=== PATIENT | male | born 1930 | race Caucasian/White ===

== ENCOUNTER 2016-07-22 10:38 | Inpatient (IN) | payer MEDICARE ==
--- NOTE | 2016-07-22 11:01 | ED PDOC ---
HPI: General Adult Time Seen by Provider: 07/22/16 10:56 Chief Complaint (Provider): vomit History Per: Patient History/Exam Limitations: no limitations Additional Complaint(s): 86yo male comes to the ED complaining of dizziness, since yesterday. Worse when turning his head side to side and vomit. States he vomited 15x yesterday and 2x today. No chest pain. Past Medical History Reviewed: Historical Data, Nursing Documentation, Vital Signs Vital Signs: Last Vital Signs Temp 97.0 F L 07/22/16 11:14 Pulse 57 L 07/22/16 11:14 Resp 20 07/22/16 11:14 BP 162/79 H 07/22/16 11:14 Pulse Ox 99 07/22/16 11:14 - Medical History PMH: HTN Denies: Diabetes - Surgical History Surgical History: Back Surgery, CABG, Cholecystectomy - Family History Family History: States: Unknown Family Hx - Immunization History Hx Tetanus Toxoid Vaccination: No - Home Medications Home Medications: Ambulatory Orders Medication Instructions Recorded Avodart 0.5 mg PO DAILY 12/16/14 Coreg 6.25 mg PO DAILY 12/16/14 Flomax 0.4 mg PO DAILY 12/16/14 Gabapentin 300 mg PO DAILY 12/16/14 Lipitor 20 mg PO DAILY 12/16/14 Lisinopril 20 - 125 mg PO DAILY 12/16/14 Phenazopyridine Hydrochlorid2 1 tab PO TID #20 tab 12/16/14 [Pyridium] Plavix 75 mg PO DAILY 12/16/14 traMADol 50 mg PO BID 12/16/14 - Allergies Allergies/Adverse Reactions: Allergies Allergy/AdvReac Type Severity Reaction Status Date / Time No Known Allergies Allergy Unverified 12/16/14 09:49 Review of Systems ROS Statement: Except As Marked, All Systems Reviewed And Found Negative Cardiovascular: Negative for: Chest Pain Gastrointestinal: Positive for: Vomiting Neurological: Positive for: Dizziness Physical Exam - Reviewed Nursing Documentation Reviewed: Yes Vital Signs Reviewed: Yes - Physical Exam Appears: Positive for: Well, Non-toxic, No Acute Distress Head Exam: Positive for: ATRAUMATIC, NORMAL INSPECTION, NORMOCEPHALIC Skin: Positive for: Warm, Dry Eye Exam: Positive for: EOMI, PERRL Cardiovascular/Chest: Positive for: Regular Rate, Rhythm Respiratory: Positive for: Normal Breath Sounds. Negative for: Rales, Rhonchi, Wheezing Extremity: Positive for: Normal ROM Neurologic/Psych: Positive for: Alert, Oriented (x3) - Laboratory Results Result Diagrams: 07/22/16 11:31 07/22/16 11:31 Disposition - Clinical Impression Clinical Impression: Chest pain, Vertigo - Patient ED Disposition Is Patient to be Admitted: Yes - Disposition Disposition Time: 12:33 Condition: FAIR - Pt Status Changed To: Hospital Disposition Of: Observation - POA Present On Arrival: None Additional Comments - Additional Comments Additional Comments: Documented by Hiram Marie acting as a scribe for Pilo Campo MD. All medical record entries made by the Scribe were at my direction and personally dictated by me. I have reviewed the chart and agree that the record accurately reflects my personal performance of the history, physical exam, medical decision making, and the department course for this patient. I have also personally directed, reviewed, and agree with the discharge instructions and disposition.
[2016-07-22] MEDS ORDERED: Sodium Chloride 0.9% 1,000 ML IV STA (11:04)
[2016-07-22 11:36] LABS: BASO % 0.2 % (0.0-2.0); EOS # 0.1 K/uL (0.0-0.7); EOS % 1.1 % (0.0-4.0); HEMATOCRIT 43.7 % (35.0-51.0); LYMPH # 0.8 K/uL (1.0-4.3); LYMPH % 9.4 % (20.0-40.0); MEAN CELL VOLUME 95.1 fl (80.0-94.0); MEAN CORPUSCULAR HEMOGLOBIN 32.1 pg (27.0-31.0); MEAN CORPUSCULAR HGB CONC 33.8 g/dL (33.0-37.0); MEAN PLATELET VOLUME 9.8 fl (7.2-11.7); MONO # 0.4 K/uL (0.0-0.8); MONO % 4.2 % (0.0-10.0); NEUT # 7.3 K/uL (1.8-7.0); NEUT % 85.1 % (50.0-75.0); NRBC % 0.1 % (0.0-0.0); PLATELET COUNT 133 K/uL (130-400); RED CELL DISTRIBUTION WIDTH 14.9 % (11.5-14.5); WHITE BLOOD COUNT 8.6 K/uL (4.8-10.8)
[2016-07-22 11:52] LABS: ALB/GLOB RATIO 1.3 (1.0-2.1); ALKALINE PHOSPHATASE 53 U/L (38-126); ALT/SGPT 30 U/L (21-72); AST/SGOT 28 U/L (17-59); BILIRUBIN,TOTAL 0.9 mg/dl (0.2-1.3); BLOOD UREA NITROGEN 21 mg/dl (9-20); CALCIUM 9.1 mg/dL (8.4-10.2); CARBON DIOXIDE 28 mmol/L (22-30); CHLORIDE 97 mmol/L (98-107); GFR AFRICAN-AMERICAN > 60; GLUCOSE,RANDOM 147 mg/dL (75-110); POTASSIUM 3.7 MMOL/L (3.6-5.0); SODIUM 142 mmol/l (132-148); TOTAL PROTEIN 7.3 G/DL (6.3-8.2)
[2016-07-22 12:37] LABS: NEUTROPHIL 83 % (42-75); REACTIVE LYMPHOCYTES 1 % (0-0); TOTAL CELLS COUNTED 100
[2016-07-22 12:38] LABS: LARGE PLATELETS PRESENT; PLATELET CLUMPS PRESENT
--- NOTE | 2016-07-22 13:32 | RAD ---
HISTORY: dizziness COMPARISON: No prior. TECHNIQUE: Chest PA and lateral FINDINGS: LUNGS: No active pulmonary disease. PLEURA: No significant pleural effusion identified. No pneumothorax apparent. CARDIOVASCULAR: Normal. OSSEOUS STRUCTURES: No significant abnormalities. VISUALIZED UPPER ABDOMEN: Normal. OTHER FINDINGS: None. IMPRESSION: No active disease.
[2016-07-22] MEDS ORDERED: Pantoprazole 40 mg EC Tab PO ONE (15:59)
[2016-07-22] MEDS ORDERED: Pantoprazole 40 mg EC Tab PO STA (16:07)
--- NOTE | 2016-07-23 07:06 | CP.PCM.HP ---
History of Present Illness - History of Present Illness History of Present Illness: pt presented to er for dizziness. was admitted for dizziness and abn ekg. pt was given meds for dizziness-meclizine and felt better. bw, ekg and imaging noted. cardio cleared pt for dc. pt ambulates w/ cane. no distress. Present on Admission - Present on Admission Any Indicators Present on Admission: No Review of Systems - Cardiovascular Cardiovascular: As Per HPI, Slow Heart Rate - Neurological Neurological: As Per HPI, Dizziness Past Patient History - Past Medical History & Family History Past Medical History?: Yes - Past Social History Smoking Status: Never Smoked - CARDIAC Hx Cardiac Disorders: Yes - PULMONARY Hx Respiratory Disorders: No - NEUROLOGICAL Hx Neurological Disorder: No - HEENT Hx HEENT Problems: No - RENAL Hx Chronic Kidney Disease: No - ENDOCRINE/METABOLIC Hx Endocrine Disorders: No - HEMATOLOGICAL/ONCOLOGICAL Hx Blood Disorders: No - INTEGUMENTARY Hx Dermatological Problems: No - MUSCULOSKELETAL/RHEUMATOLOGICAL Hx Musculoskeletal Disorders: Yes - GASTROINTESTINAL Hx Gastrointestinal Disorders: Yes Hx Bowel Surgery: No Hx Clostridium Difficile: No Hx Colitis: No Hx Colostomy: No Hx Constipation: No Hx Crohn's Disease: No Hx Diarrhea: No Hx Diverticulitis: No Hx Esophageal Varices: No Hx Fatty Liver Disease: No Hx Gall Bladder Disease: No Hx Gastritis: No Hx Gastroesophageal Reflux: No Hx Hemorrhoids: No Hx Ileostomy: No Hx Irritable Bowel: No Hx Liver Failure: No Hx Nausea: Yes Hx Pancreatitis: No HX Swallowing Problems: Yes Hx Ulcer: No Hx Vomiting: Yes - GENITOURINARY/GYNECOLOGICAL Hx Genitourinary Disorders: No - PSYCHIATRIC Hx Psychophysiologic Disorder: No - SURGICAL HISTORY Hx Surgeries: Yes Hx Abdominal Aortic Aneurysm Repair: No Hx Amputation: No Hx Angiogram: No Hx Angioplasty: No Hx Appendectomy: No Hx Arteriovenous Shunt: No Hx Arthroscopy: No Hx Bile Duct Stent: No Hx Breast Biopsy: No Hx Cataract Extraction: No Hx Cardiac Catheterization: No Hx Carotid Endarterectomy: No Hx Section: No Hx Cholecystectomy: Yes Hx Coronary Artery Bypass Graft: Yes Hx Coronary Stent: No Hx Dilation and Curettage: No Hx Eye Surgery: Yes Hx Femoral-Popliteal Bypass Graft: No Hx Gastric Bypass Surgery: No Hx Herniorrhaphy: No Hx Hysterectomy: No Hx Joint Replacement: No Hx Kidney Transplant: No Hx Liver Transplant: No Hx Mastectomy: No Hx Musculoskeletal Surgery: No Hx Open Heart Surgery: No Hx Open Reduction Internal Fixation: No Hx Orthopedic Surgery: No Hx Parathyroidectomy: No Hx Penile Implant: No Hx Pulmonary Surgery: No Hx Splenectomy: No Hx Thyroidectomy: No Hx Tonsillectomy: No Hx Tubal Ligation: No Hx Valve Replacement: No Hx Vascular Surgery: No Hx Vascular Access Device: No - ANESTHESIA Hx Anesthesia: Yes Hx Anesthesia Reactions: No Hx Malignant Hyperthermia: No Has any member of the family had a problem w/ anesthesia?: No Meds Home Medications: Home Medication List Medication Instructions Recorded Confirmed Type Meclizine [Antivert] 25 mg PO Q8 #30 tab 07/23/16 Rx Allergies/Adverse Reactions: Allergies Allergy/AdvReac Type Severity Reaction Status Date / Time No Known Allergies Allergy Unverified 12/16/14 09:49 Physical Exam - Constitutional Appears: Well, Non-toxic, No Acute Distress - Head Exam Head Exam: ATRAUMATIC, NORMAL INSPECTION, NORMOCEPHALIC - Eye Exam Eye Exam: EOMI, Normal appearance, PERRL Pupil Exam: NORMAL ACCOMODATION, PERRL - ENT Exam ENT Exam: Mucous Membranes Moist, Normal Exam - Neck Exam Neck exam: Positive for: Normal Inspection - Respiratory Exam Respiratory Exam: Clear to Auscultation Bilateral, NORMAL BREATHING PATTERN - Cardiovascular Exam Cardiovascular Exam: Bradycardia, REGULAR RHYTHM, RRR, +S1, +S2 - GI/Abdominal Exam GI & Abdominal Exam: Normal Bowel Sounds, Soft. absent: Tenderness - Extremities Exam Extremities exam: Positive for: full ROM, normal capillary refill, normal inspection, pedal pulses present - Back Exam Back exam: FULL ROM, NORMAL INSPECTION - Neurological Exam Neurological exam: Alert, CN II-XII Intact, Normal Gait, Oriented x3, Reflexes Normal - Psychiatric Exam Psychiatric exam: Normal Affect, Normal Mood - Skin Skin Exam: Dry, Intact, Normal Color, Warm Results - Vital Signs Recent Vital Signs: Last Vital Signs Temp 98.3 F 07/23/16 04:48 Pulse 63 07/23/16 04:48 Resp 18 07/23/16 04:48 BP 121/66 07/23/16 04:48 Pulse Ox 97 07/23/16 04:45 - Labs Result Diagrams: 07/23/16 05:50 07/23/16 05:50 Labs: Laboratory Results - last 24 hr 07/22/16 18:40 Troponin I < 0.0120 Assessment & Plan (1) Vertigo Assessment and Plan: meclizine w/ relief neuro cardio Status: Acute (2) Chest pain Assessment and Plan: r/o by cardio trops negative Status: Ruled-out (3) DVT prophylaxis Assessment and Plan: scd nad ae hose lovenox if admitted over 24h Status: Acute Decision To Admit - Pt Status Changed To: Hospital Disposition Of: Observation - . Bed Request Type: Telemetry Admitting Physician: Jun Hicks
[2016-07-23 07:52] LABS: BASO % 0.4 % (0.0-2.0); EOS # 0.3 K/uL (0.0-0.7); LYMPH # 1.4 K/uL (1.0-4.3); LYMPH % 17.4 % (20.0-40.0); MEAN CELL VOLUME 94.9 fl (80.0-94.0); MEAN CORPUSCULAR HEMOGLOBIN 32.4 pg (27.0-31.0); MEAN CORPUSCULAR HGB CONC 34.1 g/dL (33.0-37.0); MEAN PLATELET VOLUME 9.8 fl (7.2-11.7); MONO # 0.6 K/uL (0.0-0.8); MONO % 7.4 % (0.0-10.0); NEUT # 5.6 K/uL (1.8-7.0); NEUT % 70.8 % (50.0-75.0); NRBC % 0.1 % (0.0-0.0); RED CELL DISTRIBUTION WIDTH 14.9 % (11.5-14.5); WHITE BLOOD COUNT 7.9 K/uL (4.8-10.8)
[2016-07-23 08:03] LABS: ALB/GLOB RATIO 1.3 (1.0-2.1); ALKALINE PHOSPHATASE 48 U/L (38-126); ALT/SGPT 28 U/L (21-72); AST/SGOT 23 U/L (17-59); BILIRUBIN,TOTAL 0.8 mg/dl (0.2-1.3); BLOOD UREA NITROGEN 17 mg/dl (9-20); CALCIUM 8.8 mg/dL (8.4-10.2); CARBON DIOXIDE 29 mmol/L (22-30); CHLORIDE 101 mmol/L (98-107); GFR AFRICAN-AMERICAN > 60; GLUCOSE,RANDOM 90 mg/dL (75-110); SODIUM 143 mmol/l (132-148); TOTAL PROTEIN 6.6 G/DL (6.3-8.2)
--- NOTE | 2016-07-23 08:37 | CP.PCM.CON ---
History of Present Illness - History of Present Illness History of Present Illness: 86yo male comes to the ED complaining of dizziness, since yesterday. Worse when turning his head side to side and vomit. States he vomited 15x yesterday and 2x today. No chest pain. The patient emphatically denies having had any chest pain. Does not get chest pain when he exerts himself. The only problem he came in for was a nauseousness and vomiting. Troponin: neg x 3 EKG: normal Past Patient History - Past Medical History & Family History Past Medical History?: Yes - Past Social History Smoking Status: Never Smoked - CARDIAC Hx Cardiac Disorders: Yes - PULMONARY Hx Respiratory Disorders: No - NEUROLOGICAL Hx Neurological Disorder: No - HEENT Hx HEENT Problems: No - RENAL Hx Chronic Kidney Disease: No - ENDOCRINE/METABOLIC Hx Endocrine Disorders: No - HEMATOLOGICAL/ONCOLOGICAL Hx Blood Disorders: No - INTEGUMENTARY Hx Dermatological Problems: No - MUSCULOSKELETAL/RHEUMATOLOGICAL Hx Musculoskeletal Disorders: Yes - GASTROINTESTINAL Hx Gastrointestinal Disorders: Yes Hx Bowel Surgery: No Hx Clostridium Difficile: No Hx Colitis: No Hx Colostomy: No Hx Constipation: No Hx Crohn's Disease: No Hx Diarrhea: No Hx Diverticulitis: No Hx Esophageal Varices: No Hx Fatty Liver Disease: No Hx Gall Bladder Disease: No Hx Gastritis: No Hx Gastroesophageal Reflux: No Hx Hemorrhoids: No Hx Ileostomy: No Hx Irritable Bowel: No Hx Liver Failure: No Hx Nausea: Yes Hx Pancreatitis: No HX Swallowing Problems: Yes Hx Ulcer: No Hx Vomiting: Yes - GENITOURINARY/GYNECOLOGICAL Hx Genitourinary Disorders: No - PSYCHIATRIC Hx Psychophysiologic Disorder: No - SURGICAL HISTORY Hx Surgeries: Yes Hx Abdominal Aortic Aneurysm Repair: No Hx Amputation: No Hx Angiogram: No Hx Angioplasty: No Hx Appendectomy: No Hx Arteriovenous Shunt: No Hx Arthroscopy: No Hx Bile Duct Stent: No Hx Breast Biopsy: No Hx Cataract Extraction: No Hx Cardiac Catheterization: No Hx Carotid Endarterectomy: No Hx Section: No Hx Cholecystectomy: Yes Hx Coronary Artery Bypass Graft: Yes Hx Coronary Stent: No Hx Dilation and Curettage: No Hx Eye Surgery: Yes Hx Femoral-Popliteal Bypass Graft: No Hx Gastric Bypass Surgery: No Hx Herniorrhaphy: No Hx Hysterectomy: No Hx Joint Replacement: No Hx Kidney Transplant: No Hx Liver Transplant: No Hx Mastectomy: No Hx Musculoskeletal Surgery: No Hx Open Heart Surgery: No Hx Open Reduction Internal Fixation: No Hx Orthopedic Surgery: No Hx Parathyroidectomy: No Hx Penile Implant: No Hx Pulmonary Surgery: No Hx Splenectomy: No Hx Thyroidectomy: No Hx Tonsillectomy: No Hx Tubal Ligation: No Hx Valve Replacement: No Hx Vascular Surgery: No Hx Vascular Access Device: No - ANESTHESIA Hx Anesthesia: Yes Hx Anesthesia Reactions: No Hx Malignant Hyperthermia: No Has any member of the family had a problem w/ anesthesia?: No Meds Allergies/Adverse Reactions: Allergies Allergy/AdvReac Type Severity Reaction Status Date / Time No Known Allergies Allergy Unverified 12/16/14 09:49 - Medications Medications: Current Medications Aspirin (Aspirin Chewable) 81 mg PO DAILY [facility] Physical Exam - Respiratory Exam Respiratory Exam: NORMAL BREATHING PATTERN - Cardiovascular Exam Cardiovascular Exam: REGULAR RHYTHM Results - Vital Signs Recent Vital Signs: Last Vital Signs Temp 98.7 F 07/23/16 08:00 Pulse 62 07/23/16 08:00 Resp 18 07/23/16 08:00 BP 151/72 H 07/23/16 08:00 Pulse Ox 97 07/23/16 08:00 - Labs Result Diagrams: 07/23/16 05:50 07/23/16 05:50 Labs: Laboratory Results - last 24 hr 07/22/16 07/23/16 18:40 05:50 WBC 7.9 RBC 4.42 Hgb 14.3 Hct 42.0 MCV 94.9 H MCH 32.4 H MCHC 34.1 RDW 14.9 H Plt Count 130 MPV 9.8 Neut % (Auto) 70.8 Lymph % (Auto) 17.4 L [place] % (Auto) 7.4 Eos % (Auto) 4.0 Baso % (Auto) 0.4 Neut # 5.6 Lymph # 1.4 [place] # 0.6 Eos # 0.3 Baso # 0.0 Sodium 143 Potassium 4.0 Chloride 101 Carbon Dioxide 29 Anion Gap 18 BUN 17 Creatinine 0.9 Est GFR ( Amer) > 60 Est GFR (Non-Af Amer) > 60 Random Glucose 90 Calcium 8.8 Total Bilirubin 0.8 AST 23 ALT 28 Alkaline Phosphatase 48 Troponin I < 0.0120 0.0300 Total Protein 6.6 Albumin 3.8 Globulin 2.8 Albumin/Globulin Ratio 1.3 Assessment & Plan (1) Chest pain Assessment and Plan: As stated above the patient denies having had chest pain now or in the past He may be discharged at any time from a cardiac point of view Status: Ruled-out (2) Vertigo Status: Acute
--- NOTE | 2016-07-23 11:48 | CARD ---
APPROVED REPORT EKG Measurement Heart [id number] <Conclusion> Sinus bradycardia ST & T wave abnormality, consider anterior ischemia Abnormal ECG
--- NOTE | 2016-07-23 14:07 | CON ---
DATE: 07/23/2016 CHIEF COMPLAINT: Dizziness. HISTORY OF PRESENT ILLNESS: This is an 86-year-old man with history of hypertension, history of CABG , coronary artery disease, lumbar surgery, apparently was having dizziness in terms of spinning sensa tion of the room when he turns his head in a right to left direction or getting up suddenly from a si tting to a standing position, which is associated with nausea. Currently, he is doing much better to day. Denies any change in sense of vision, taste or smell. Denies any headaches or any focal weakne ss or paresthesias in the extremities. He was given meclizine which has made him feel better. His b lood pressure is much better controlled. Adan-Hallpike maneuver is negative at the bedside. PAST MEDICAL HISTORY: History of hypertension, lumbosacral surgery, coronary artery disease, coronar y artery bypass graft. REVIEW OF SYSTEMS: A 14-point review of systems is negative except for the HPI FAMILY HISTORY: Noncontributory. ALLERGIES: No known drug allergies. MEDICATIONS: Reviewed via nurse's reconciliation sheet. SOCIAL HISTORY: No illicit drug use, smoking, or ETOH abuse. PHYSICAL EXAMINATION: VITAL SIGNS: Temperature 98.8, pulse rate 60, blood pressure 120/65, respiratory rate of 18, oxygen 97% on room air. GENERAL: The patient is sitting up in bed in no acute distress. HEENT: Atraumatic, normocephalic. PERRLA. Extraocular muscles intact. NECK: Supple. No JVD. No adenopathy noted. LUNGS: Clear to auscultation. No adventitious sounds. HEART: S1, S2, normal rate and rhythm. No murmurs, rubs, or gallops. ABDOMEN: Soft, nontender, bowel sounds are present. EXTREMITIES: No clubbing, no cyanosis. Peripheral pulses 2+ felt bilaterally. NEUROLOGIC: The patient is alert, oriented to person, place, month and year. Speech is fluent, with out any errors. Cranial nerves II through XII are intact. MOTOR: Moves all extremities equally. Toes downgoing bilaterally. SENSORY: Light touch, pinprick, proprioception, vibration is intact. DTRs are 2+ throughout. COORDINATION: [id number] intact. GAIT: Deferred for now. LABORATORY DATA: Sodium is 143, potassium 4, chloride of 101, carbon dioxide 29, BUN of 17, creatini ne 0.9. Random glucose of 90. ASSESSMENT AND PLAN: This is an 86-year-old man with history of coronary artery disease, status post coronary artery bypass graft, history of chronic low back pain, history of lumbar surgery, history o f hypertension, who had dizziness in terms of spinning sensation of the room, especially when moving his head in right and left direction, associated with nausea and sudden movements. IMPRESSION: This is more of a paroxysmal positional vertigo. At this time, recommend: 1. Salt reduction in diet. 2. Meclizine 25 mg p.o. t.i.d. 3. Will need outpatient vestibular therapy. He is stable from my standpoint. Thank you for this consult. Peyman Aguilar MD cc: [phone] TT: 07/23/2016 14:06:51 Confirmation # [id number] Dictation # [id number] nitesh
--- NOTE | 2016-07-24 07:06 | CP.PCM.PN ---
Subjective - Date & Time of Evaluation Date of Evaluation: 07/24/16 Time of Evaluation: 07:05 - Subjective Subjective: doign well, no dizziness, unsteady gait despite cane. pending shane. no f/c, n/v/d. pending am labs. cleared by cardio/neuro for shane Objective - Vital Signs/Intake and Output Vital Signs (last 24 hours): Temp Pulse Resp BP Pulse Ox 97.6 F 59 L 18 136/78 97 07/23/16 22:37 07/23/16 22:37 07/23/16 22:37 07/23/16 22:37 07/23/16 22:37 - Medications Medications: Current Medications Aspirin (Aspirin Chewable) 81 mg PO DAILY [facility] Last Admin: 07/23/16 09:01 Dose: 81 mg Atorvastatin Calcium (Lipitor) 10 mg PO DAILY [facility] Carvedilol (Coreg) 6.25 mg PO DAILY [facility] Clopidogrel Bisulfate (Plavix) 75 mg PO DAILY [facility] Home Med (Dutasteride [Avodart]) 0.5 mg PO DAILY [facility] Home Med (Lisinopril/Hydrochlorothiazide [Lisinopril-Hctz 20-25 Mg Tab]) 1 tab PO DAILY [facility] Hydrochlorothiazide (Hydrodiuril) 25 mg PO DAILY [facility] Lisinopril (Zestril) 20 mg PO DAILY [facility] Meclizine HCl (Antivert) 25 mg PO BID [facility] Last Admin: 07/23/16 16:45 Dose: 25 mg Tamsulosin HCl (Flomax) 0.4 mg PO DAILY [facility] - Constitutional Appears: Well, Non-toxic, No Acute Distress - Head Exam Head Exam: ATRAUMATIC, NORMAL INSPECTION, NORMOCEPHALIC - Eye Exam Eye Exam: EOMI, Normal appearance, PERRL Pupil Exam: NORMAL ACCOMODATION, PERRL - ENT Exam ENT Exam: Mucous Membranes Moist, Normal Exam - Neck Exam Neck Exam: Full ROM, Normal Inspection. absent: Lymphadenopathy - Respiratory Exam Respiratory Exam: Clear to Ausculation Bilateral, NORMAL BREATHING PATTERN - Cardiovascular Exam Cardiovascular Exam: REGULAR RHYTHM, RRR, +S1, +S2. absent: Murmur - GI/Abdominal Exam GI & Abdominal Exam: Soft, Normal Bowel Sounds. absent: Tenderness - Extremities Exam Extremities Exam: Full ROM, Normal Capillary Refill, Normal Inspection. absent : Joint Swelling, Pedal Edema - Back Exam Back Exam: NORMAL INSPECTION - Neurological Exam Neurological Exam: Abnormal Gait, Alert, Awake, CN II-XII Intact, Oriented x3 - Psychiatric Exam Psychiatric exam: Normal Affect, Normal Mood - Skin Skin Exam: Dry, Intact, Normal Color, Warm Assessment and Plan (1) Vertigo Status: Acute (2) DVT prophylaxis Status: Acute - Assessment and Plan (Free Text) Assessment: (1) Vertigo Assessment and Plan: meclizine w/ relief neuro cardio Status: Acute (2) Chest pain Assessment and Plan: r/o by cardio trops negative Status: Ruled-out (3) DVT prophylaxis Assessment and Plan: scd nad ae hose lovenox if admitted over 24h Status: Acute for shane
[2016-07-24 07:58] LABS: BASO % 0.4 % (0.0-2.0); EOS # 0.4 K/uL (0.0-0.7); EOS % 6.3 % (0.0-4.0); HEMATOCRIT 41.7 % (35.0-51.0); LYMPH # 1.7 K/uL (1.0-4.3); LYMPH % 25.1 % (20.0-40.0); MEAN CELL VOLUME 94.8 fl (80.0-94.0); MEAN CORPUSCULAR HEMOGLOBIN 32.3 pg (27.0-31.0); MEAN CORPUSCULAR HGB CONC 34.1 g/dL (33.0-37.0); MEAN PLATELET VOLUME 9.7 fl (7.2-11.7); MONO # 0.5 K/uL (0.0-0.8); MONO % 7.5 % (0.0-10.0); NEUT # 4.2 K/uL (1.8-7.0); NEUT % 60.7 % (50.0-75.0); NRBC % 0.1 % (0.0-0.0); WHITE BLOOD COUNT 6.9 K/uL (4.8-10.8)
[2016-07-24 08:06] VITALS: RESP 20
[2016-07-24 08:15] LABS: ALB/GLOB RATIO 1.2 (1.0-2.1); ALKALINE PHOSPHATASE 45 U/L (38-126); ALT/SGPT 26 U/L (21-72); AST/SGOT 24 U/L (17-59); BILIRUBIN,TOTAL 0.7 mg/dl (0.2-1.3); BLOOD UREA NITROGEN 19 mg/dl (9-20); CALCIUM 8.8 mg/dL (8.4-10.2); CARBON DIOXIDE 30 mmol/L (22-30); CHLORIDE 101 mmol/L (98-107); GFR AFRICAN-AMERICAN > 60; GLUCOSE,RANDOM 92 mg/dL (75-110); POTASSIUM 3.9 MMOL/L (3.6-5.0); SODIUM 142 mmol/l (132-148); TOTAL PROTEIN 6.5 G/DL (6.3-8.2)
[2016-07-24] MEDS ORDERED: Patient's Own Med (Lisinopril/Hydrochlorothiazide [Lisinopril-Hctz 20-25 Mg Tab] 1 TAB) PO SCH (09:00)
[2016-07-24 21:39] VITALS: TEMP 98.4; O2SAT 97
[2016-07-25 07:08] LABS: BASO % 0.5 % (0.0-2.0); EOS # 0.6 K/uL (0.0-0.7); EOS % 9.5 % (0.0-4.0); HEMATOCRIT 42.8 % (35.0-51.0); LYMPH # 1.7 K/uL (1.0-4.3); LYMPH % 25.1 % (20.0-40.0); MEAN CELL VOLUME 95.9 fl (80.0-94.0); MEAN CORPUSCULAR HEMOGLOBIN 32.1 pg (27.0-31.0); MEAN CORPUSCULAR HGB CONC 33.5 g/dL (33.0-37.0); MEAN PLATELET VOLUME 9.8 fl (7.2-11.7); MONO # 0.5 K/uL (0.0-0.8); MONO % 8.2 % (0.0-10.0); NEUT # 3.8 K/uL (1.8-7.0); NEUT % 56.7 % (50.0-75.0); NRBC % 0.1 % (0.0-0.0); RED CELL DISTRIBUTION WIDTH 14.7 % (11.5-14.5); WHITE BLOOD COUNT 6.7 K/uL (4.8-10.8)
[2016-07-25 07:17] LABS: ALB/GLOB RATIO 1.3 (1.0-2.1); ALKALINE PHOSPHATASE 46 U/L (38-126); ALT/SGPT 27 U/L (21-72); AST/SGOT 22 U/L (17-59); BILIRUBIN,TOTAL 0.8 mg/dl (0.2-1.3); BLOOD UREA NITROGEN 24 mg/dl (9-20); CALCIUM 8.9 mg/dL (8.4-10.2); CARBON DIOXIDE 30 mmol/L (22-30); CHLORIDE 99 mmol/L (98-107); GFR AFRICAN-AMERICAN > 60; GLUCOSE,RANDOM 95 mg/dL (75-110); POTASSIUM 4.1 MMOL/L (3.6-5.0); SODIUM 141 mmol/l (132-148); TOTAL PROTEIN 6.5 G/DL (6.3-8.2)
[2016-07-25 08:47] VITALS: BP 147/80
[2016-07-25 09:27] VITALS: PULSE 61
--- NOTE | 2016-07-25 09:48 | CP.PCM.DIS ---
Provider - Provider Date of Admission: 07/23/16 14:49 Attending physician: Jun Hicks MD Time Spent in preparation of Discharge (in minutes): 15 Diagnosis - Discharge Diagnosis (1) Vertigo Status: Acute (2) DVT prophylaxis Status: Acute Hospital Course - Lab Results Lab Results: Most Recent Lab Values WBC 6.7 K/uL (4.8-10.8) 07/25/16 04:00 RBC 4.46 Mil/uL (4.40-5.90) 07/25/16 04:00 Hgb 14.3 g/dL (12.0-18.0) 07/25/16 04:00 Hct 42.8 % (35.0-51.0) 07/25/16 04:00 MCV 95.9 fl (80.0-94.0) H 07/25/16 04:00 MCH 32.1 pg (27.0-31.0) H 07/25/16 04:00 MCHC 33.5 g/dL (33.0-37.0) 07/25/16 04:00 RDW 14.7 % (11.5-14.5) H 07/25/16 04:00 Plt Count 130 K/uL (130-400) 07/25/16 04:00 MPV 9.8 fl (7.2-11.7) 07/25/16 04:00 Neut % (Auto) 56.7 % (50.0-75.0) 07/25/16 04:00 Lymph % (Auto) 25.1 % (20.0-40.0) 07/25/16 04:00 [place] % (Auto) 8.2 % (0.0-10.0) 07/25/16 04:00 Eos % (Auto) 9.5 % (0.0-4.0) H 07/25/16 04:00 Baso % (Auto) 0.5 % (0.0-2.0) 07/25/16 04:00 Neut # 3.8 K/uL (1.8-7.0) 07/25/16 04:00 Lymph # 1.7 K/uL (1.0-4.3) 07/25/16 04:00 [place] # 0.5 K/uL (0.0-0.8) 07/25/16 04:00 Eos # 0.6 K/uL (0.0-0.7) 07/25/16 04:00 Baso # 0.0 K/uL (0.0-0.2) 07/25/16 04:00 Neutrophils % (Manual) 83 % (42-75) H 07/22/16 11:31 Lymphocytes % (Manual) 9 % (20-50) L 07/22/16 11:31 Reactive Lymphs % 1 % (0-0) H 07/22/16 11:31 Monocytes % (Manual) 7 % (0-10) 07/22/16 11:31 Hypersegmented Polys Present 07/22/16 11:31 Platelet Estimate Normal (NORMAL) 07/22/16 11:31 Plt Clumps, EDTA Present 07/22/16 11:31 Large Platelets Present 07/22/16 11:31 Anisocytosis (manual) Slight 07/22/16 11:31 Tear Drop Cells Slight 07/22/16 11:31 Ovalocytes Slight 07/22/16 11:31 Schistocytes Slight 07/22/16 11:31 Sodium 141 mmol/l (132-148) 07/25/16 05:30 Potassium 4.1 MMOL/L (3.6-5.0) 07/25/16 05:30 Chloride 99 mmol/L (98-107) 07/25/16 05:30 Carbon Dioxide 30 mmol/L (22-30) 07/25/16 05:30 Anion Gap 16 (10-20) 07/25/16 05:30 BUN 24 mg/dl (9-20) H 07/25/16 05:30 Creatinine 1.0 mg/dL (0.8-1.5) 07/25/16 05:30 Est GFR ( Amer) > 60 07/25/16 05:30 Est GFR (Non-Af Amer) > 60 07/25/16 05:30 POC Glucose (mg/dL) 121 mg/dL (65-110) H 07/23/16 15:50 Random Glucose 95 mg/dL (75-110) 07/25/16 05:30 Calcium 8.9 mg/dL (8.4-10.2) 07/25/16 05:30 Total Bilirubin 0.8 mg/dl (0.2-1.3) 07/25/16 05:30 AST 22 U/L (17-59) 07/25/16 05:30 ALT 27 U/L (21-72) 07/25/16 05:30 Alkaline Phosphatase 46 U/L (38-126) 07/25/16 05:30 Troponin I 0.0300 ng/mL (0.00-0.120) 07/23/16 05:50 Total Protein 6.5 G/DL (6.3-8.2) 07/25/16 05:30 Albumin 3.7 g/dL (3.5-5.0) 07/25/16 05:30 Globulin 2.8 gm/dL (2.2-3.9) 07/25/16 05:30 Albumin/Globulin Ratio 1.3 (1.0-2.1) 07/25/16 05:30 Discharge Exam - Head Exam Head Exam: ATRAUMATIC, NORMAL INSPECTION, NORMOCEPHALIC - Eye Exam Eye Exam: EOMI, Normal appearance, PERRL Pupil Exam: NORMAL ACCOMODATION, PERRL - Respiratory Exam Respiratory Exam: Clear to PA & Lateral, NORMAL BREATHING PATTERN, UNREMARKABLE - Cardiovascular Exam Cardiovascular Exam: REGULAR RHYTHM, RRR, +S1, +S2 - GI/Abdominal Exam GI & Abdominal Exam: Normal Bowel Sounds, Soft, Unremarkable - Extremities Exam Extremities exam: full ROM, normal capillary refill, normal inspection, pedal pulses present - Back Exam Back exam: FULL ROM - Neurological Exam Neurological exam: Alert, CN II-XII Intact, Normal Gait, Oriented x3, Reflexes Normal - Psychiatric Exam Psychiatric exam: Normal Affect, Normal Mood - Skin Skin Exam: Dry, Intact, Normal Color, Warm Discharge Plan - Discharge Medications Prescriptions: Aspirin [Aspirin Chewable] 81 mg PO DAILY #30 chew Meclizine [Meclizine*] 25 mg PO Q8 #30 tab Meclizine [Meclizine*] 25 mg PO BID #30 tab - Follow Up Plan Condition: FAIR Disposition: HOME/ ROUTINE Instructions: Vertigo (DC) Additional Instructions: ding well , no complaints. ambulatory w/ cane and steady gaite, pt recommends now home w/ services. for dc otday no diziness, cp final dx-vertigo f/u pmd 2 days, rted prn, meds per med rec.
== END 2016-07-25 14:35 | disposition home or self-care (01) | DRG 149 ==
LOC: H.ER 10:38 → H.ERHOLD 12:30 → H.TEL 21:39 → OBSVTOIN 07-23 14:49 → H.MEDSURG1 07-23 22:19
PROVIDERS: ADMIT Family Medicine; ATTEND Family Medicine
DX: H81.13 Benign paroxysmal vertigo, bilateral (principal); Z95.1 Presence of aortocoronary bypass graft; I10 Essential (primary) hypertension; I25.10 Atherosclerotic heart disease of native coronary artery without angina pectoris; R42 Dizziness and giddiness; M54.9 Dorsalgia, unspecified; G89.29 Other chronic pain; R07.9 Chest pain, unspecified